=== PATIENT | female | born 1950 | race Caucasian/White ===

== ENCOUNTER → 2016-06-25 | Outpatient (CLI) | payer MEDICARE, OTHER ==
[~2016-06-25] MED LIST: ASPI-650 PO; BEN50 PO; CALCIUM; CALCIUM PO; DIPH25CA6 BC; ESCI10TA PO; ESOM40CA PO; ESTR1VAG4 VG; FEXO-62 PO; FURO-110 PO; LAMO25TB PO; LATA2.5D9 OP; METO10TA96 BC; METR45CR TP; NASO17 NS; OLOP5DRO12 OP; OMEP20CA9 PO; SMV40T PO; SPIR50TA PO; ZOLP12.52 PO; [UNRECOGNIZED DRUG - CODE] BC; [UNRECOGNIZED DRUG - OTHER] PO
--- NOTE | 2016-06-25 15:50 | RADRPT ---
PROCEDURE: XR Pelvis and Hips. CLINICAL INDICATION: Pelvic pain. Bilateral hip pain. TECHNIQUE: Five views. Frontal pelvis. Frontal and lateral right hip. Frontal and lateral left hip. COMPARISON: No prior studies are available for comparison. FINDINGS: There is no fracture or dislocation. The soft tissues are normal. Articular surfaces are intact. There is no lytic or blastic lesion. There is no radiopaque foreign body. IMPRESSION: 1. Unremarkable x-ray pelvis and bilateral hips. RPTAT: QQ .Roberto Carlos Herrera MD, MD Date Time Electronically viewed and signed by .Roberto Carlos Herrera MD, MD on 06/25/2016 15:50 .R/
--- NOTE | 2016-06-25 22:39 | HKNOTE ---
DATE OF SERVICE: 06/25/2016 MAIN COMPLAINT: Pain in both hips. HISTORY OF MAIN COMPLAINT: The patient is a 66-year-old female who has previously undergone bilater al knee replacements performed by me. She has been very pleased with the results of the surgery. S he now complains of pain in her left groin and "a very little pain in the right groin." Lately, she has had to lift her left leg with her hands to get in and out of a car. PRESENT COMPLAINTS: The pain in the left groin radiates down the anterior thigh fci down the th igh. This pain has been present for about 8 months. The pain is described as being moderate and is aggravated by walking and stair climbing. She sometimes gets rest pain. She has been taking over- the-counter anti-inflammatory medications (Aleve) and this has helped somewhat. She has a long hist ory of problems with her lower back. She has been diagnosed as having degenerative disk disease of the lumbar spine. On a level surface, she can walk a mile if she needs to, but she gets pain with e very step and she gets pain every day. She does not use a walking aid. She limps only when she is in pain. Her leg lengths feel equal in length. She does not have a shoe lift. PAST ORTHOPEDIC HISTORY: Previous orthopedic operations: Bilateral knee replacements by Dr. Aubrie varner. PRIOR CORTISONE INTAKE: By injection and by mouth on occasion. ALCOHOL INTAKE: None. OTHER JOINT PROBLEMS: None. BLOOD TESTS FOR ARTHRITIS: None. 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 PHYSICAL EXAMINATION: GENERAL: The patient is a fit-looking, but overweight, 66-year-old female. She walks without a wal jermaine aid. VITAL SIGNS: Height 5 feet. Weight 205 pounds. Blood pressure 213/83, temperature 98.2. GAIT: The patient's gait is normal. HIPS: Both hips have a full range of motion, but the patient gets marked pain in the left groin at the limits of motion. IMAGING: Plain x-rays of her pelvis and hips obtained today show marked narrowing of both hip joint spaces, but there is still some remaining articular space. There is approximately 2/3 narrowing of the hip joints. DIAGNOSES: 1. Moderate degenerative osteoarthritis of both hips, symptomatic on the left side. 2. Status post bilateral total knee replacements. MANAGEMENT: The patient advised that sooner or later she will need to have a hip replacement on the left side. I would not recommend performing the surgery at this time since she is not very markedl y incapacitated and there is still some remaining joint space in the hip. Under sterile conditions, given an injection of 2 mL of Kenalog and 6 mL of 2% lidocaine into the le ft hip joint. She will be seen again as necessary for further evaluation and treatment. Dictated By: AXEL GARZA/CARMEN Conf#: [id number] DID#: [id number]
== END | disposition home or self-care (01) ==
LOC: HKI 15:08
DX: M16.0 Bilateral primary osteoarthritis of hip (principal); Z96.653 Presence of artificial knee joint, bilateral
CPT/HCPCS: 20610; 73523; G0463; J3301

== ENCOUNTER → 2016-10-30 | Outpatient (CLI) | payer MEDICARE, OTHER ==
--- NOTE | 2016-10-30 18:01 | HKNOTE ---
DATE OF SERVICE: 10/30/2016 MAIN COMPLAINT: Pain in the right knee. HISTORY OF MAIN COMPLAINT: The patient is a 66-year-old female who underwent bilateral knee replace ments performed by me. The right knee surgery was performed on 09/19/2009. The patient is very ple ased with the results of surgery. She had no trouble with her knees. She was last seen by me in [facility] complaining of pain in her hips. She was found to have moderate degenerative osteoarthritis i n both hips, more symptomatic on left side. The patient has taken 3 falls in the last 4 months, all falls were caused by some object tripping he r up. Each time she landed right on her knees and each knee became "extensively blackened." The me chanical problem she developed as the result of these falls was some pain in the right knee near the posterior pole of the patella. The last fall was 3 weeks ago. She has not seen any doctor for thes e injuries. PHYSICAL EXAMINATION GENERAL: A fit-looking 66-year-old female. VITAL SIGNS: Height 5 feet, weight 200 pounds. Blood pressure 135/65, temperature 99.2. KNEE: Examination of the right knee, full range of motion with no pain. Tender over the lower pole of the patella. No external sign of infection or inflammation. Quadriceps mechanism is strong. O n examination of the left knee, there is a full range of motion without pain. No external sign of i nfection or inflammation. IMAGING: X-rays of her knees obtained today were reviewed with special attention to the right knee and special attention to the patella and proximal tibia. No acute fractures were noted in either kn ee. The components are well attached to the bone without any suggestion of loosening or any other p roblem. MANAGEMENT: Given reassurance that all appears to be well. She will be seen again as necessary. DIAGNOSES: 1. Status post bilateral knee replacements. 2. Status post multiple falls on both knees. 3. Sprain of both knees. 4. Degenerative osteoarthritis of both hips. Dictated By: AXEL GARZA/CARMEN Conf#: [id number] DID#: [id number]
--- NOTE | 2016-10-31 11:10 | RADRPT ---
PROCEDURE: XR bilateral knees. CLINICAL INDICATION: Knee pain. TECHNIQUE: AP weightbearing, lateral weightbearing and sunrise views of each knee are available fo r review. COMPARISON: No comparison available FINDINGS: There are bilateral total knee replacements. There is no evidence of loosening of the prosthesis. Th ere is no evidence of hardware failure. The osseous structures are normal in mineralization, archite cture and alignment No acute fracture or dislocation is seen.No osseous lesions are identified. The soft tissues are unremarkable . IMPRESSION: Unremarkable bilateral total knee replacements. RPTAT: HGDB .Ronald Magana MD, MD Date Time Electronically viewed and signed by .Ronald Magana MD, on 10/31/2016 11:10 .B/
== END | disposition home or self-care (01) ==
LOC: HKI 14:56
DX: M25.561 Pain in right knee (principal); S83.92XA Sprain of unspecified site of left knee, initial encounter; S83.91XA Sprain of unspecified site of right knee, initial encounter; M16.0 Bilateral primary osteoarthritis of hip; Z96.653 Presence of artificial knee joint, bilateral

== ENCOUNTER → 2018-05-13 | Outpatient (CLI) | END | disposition home or self-care (01) ==

== ENCOUNTER → 2018-05-27 | Outpatient (CLI) | END | disposition home or self-care (01) ==

== ENCOUNTER 2018-10-27 15:13 | Emergency (ER) | payer MEDICARE, OTHER ==
[~2018-10-27] VITALS: Ht 152.4 cm; Wt 82.2 kg
[~2018-10-27 15:13] MED LIST changes: -FEXO-62 PO; +FEXO180T13 PO; -LAMO25TB PO; +LAMO25TB7 PO; +LATA2.5D19 OP; -LATA2.5D9 OP; +METO10TA3 BC; -METO10TA96 BC; +SIMV40TA3 PO; -SMV40T PO
[2018-10-27 15:16] VITALS: BP 150/64; PULSE 68; RESP 18; Ht 152.4 cm; Wt 82.2 kg
--- NOTE | 2018-10-27 16:25 | ERD ---
ER Documentation Chief Complaint Chief Complaint lt arm pain abrasions on face, lt side of lip swelling s/p trip and fall HPI 68-year-old female, with history of hypertension and depression, presents the emergency department, complaining of left elbow pain after sustaining a ground- level fall that occurred approximately 2 hours prior to arrival. The patient denies any precipitating chest pain or dizziness. The patient also presents abrasions on the left side of the face. No loss of consciousness. ROS All systems reviewed and are negative except as per history of present illness. Medications Home Meds Active Scripts Hydrocodone/Acetaminophen ([place] 5-325 Tablet) 1 Each Tablet, 1 TAB PO QHS PRN for PAIN, #10 TAB Prov:SARITHA KAUR MD 10/27/18 Ibuprofen* (Motrin*) 600 Mg Tab, 600 MG PO Q8, #30 TAB Prov:SARITHA KAUR MD 10/27/18 Acetaminophen* (Tylenol*) 325 Mg Tablet, 2 TAB PO Q6 PRN for PAIN AND OR ELEVATED TEMP, #20 TAB Prov:SARITHA KAUR MD 10/27/18 Reported Medications Diphenhydramine Hcl* (Benadryl*) 50 Mg Cap, 50 MG PO 02/06/11 Diphenhydramine Hcl (Benadryl) 25 Mg Cap, 25 MG BC PRN NEEDED FOR ALLERGY 02/06/11 Fluoride Ion/Multivitamins (Multi Vit-Fl 0.25 Mg Tab Chew) 0.25 Mg Tab.chew, 0.25 MG BC HS 02/06/11 Cod Liver Oil (Cod Liver Oil) 1 Tab.chew Tab.chew, 1 TAB.CHEW PO HS 02/06/11 [Christal Calcium] No Conflict Check, 1200 PO BID 02/06/11 [Christal Calcium 1200] No Conflict Check 02/06/11 Aspirin (Aspirin) 81 Mg Tablet, 81 MG PO HS 02/06/11 Olopatadine* (Patanol* Ophth) 5 Ml Drops, 5 ML OP BID 1 DROP EACH EYE PRN 02/06/11 Latanoprost (Xalatan) 2.5 Ml Drops, 2.5 ML OP HS 02/06/11 Metronidazole (Metronidazole) 45 Gm Cream.gm., 45 GM TP 02/06/11 Fexofenadine Hcl* (Fexofenadine Hcl*) 180 Mg Tablet, 180 MG PO HS 02/06/11 Estradiol (Estring) 1 Vag.ring Vag.ring, 1 VAG.RING VG QUARTERLY 02/06/11 Zolpidem Tartrate* (Ambien* CR) 12.5 Mg/Bottle Tab.mphase, 12.5 MG PO HS 02/06/11 Lamotrigine* (Lamotrigine* CHEW) 25 Mg Tab.disper, 100 MG PO HS 02/06/11 Mometasone Furoate* (Nasonex*) 17 Gm [place].pump, 17 GM NS BID 02/06/11 Metoclopramide Hcl* (Metoclopramide Hcl*) 10 Mg Tablet, 10 MG BC HS 02/06/11 Esomeprazole Mag Trihydrate (Nexium) 40 Mg Capsule.dr, 40 MG PO DAILY 02/06/11 Simvastatin (Simvastatin) 40 Mg Tablet, 40 MG PO HS 02/06/11 Escitalopram Oxalate* (Lexapro*) 10 Mg Tablet, 10 MG PO HS 02/05/11 Spironolactone* (Aldactone*) 50 Mg Tablet, 50 MG PO DAILY 02/05/11 Furosemide* (Lasix*) 20 Mg Tablet, 20 MG PO DAILY 02/05/11 Omeprazole* (Prilosec*) 20 Mg Capsule.dr, 20 MG PO DAILY 02/05/11 Allergies Allergies: Coded Allergies: No Known Drug Allergy (Verified Allergy, Unknown, 02/06/11) PMhx/Soc History of Surgery: Yes (BILATERAL KNEE REPLACEMENT IN AUGUST 2009, APPENDECTOMY, 2 CS, HYSTERCTOMY ) Anesthesia Reaction: No Hx Neurological Disorder: Yes (YEST INFECTION) Hx Respiratory Disorders: No Hx Cardiac Disorders: No Hx Psychiatric Problems: Yes (DEPRESSION) Hx Miscellaneous Medical Probl: No Hx Alcohol Use: No Hx Substance Use: No Hx Tobacco Use: No Smoking Status: Never smoker FmHx Family History: No diabetes, No coronary disease Physical Exam Vitals Vital Signs Date Temp Pulse Resp B/P (MAP) Pulse Ox O2 O2 Flow FiO2 Time Delivery Rate 10/27/18 97.6 68 18 150/64 99 15:16 (92) Physical Exam Patient alert, oriented, vital signs stable. HEAD: Normocephalic, multiple superficial abrasions on the left facial area. EYES: PERRLA, EOMI, Sclera and conjunctiva appear normal. NOSE: Clear and patent nostrils. EARS: Canals clear, tympanic membranes WNL. MOUTH: normal lips and tongue, no oral lesions. THROAT: Normal oropharynx, no tonsillar exudates. NECK: Supple, No lymphadenopathy. Full ROM without pain or tenderness. HEART: RRR, no rubs, murmurs, clicks or gallops. LUNGS: Clear to auscultation. ABDOMEN: Soft, non-tender without masses or hepatosplenomegaly. EXTREMITIES: Left upper extremity: Tenderness over the lateral epicondylar elbow area, with decreased range of motion for extension and flexion, distal neurovascular exam intact. BACK: Full ROM, no deformity, normal back exam NEURO: Cranial nerves grossly intact, no motor or sensory deficit SKIN: No rashes, no petechia. Results 24 hrs Patient: TABITHA SHELBY : 1950 Age: 68 Sex: F MR #: [id number] DOS: 10/27/18 1623 Ordering MD: SARITHA KAUR MD Location: [facility] Room/Bed: PROCEDURE: CT HEAD NON CONTRAST CLINICAL INDICATION: Head injury, status post fall, history of stroke TECHNIQUE: Utilizing the multi-slice spiral CT scanner, multiple images were obtained through the brain without intravenous contrast. Automatic exposure control was utilized as dose lowering technique.DICOM images available One of more of the following dose reduction techniques were utilized: -automatic exposure control.-adjustment of the mA and/or kV according to patient size. -Use of iterative reconstruction technique. Radiation Dose: CTDI is 38.70 mGy. DLP is 634.23 mGy-cm. COMPARISON: 05/14/2018 CT head FINDINGS: Ventricular system and brain parenchyma appear unremarkable. No acute intracranial bleed, midline shift, acute extra-axial collection noted Mild periventricular low density area suggestive of deep white matter ischemic changes. Proportionate overlying brain atrophy noted. Brain stem, posterior fossa appears unremarkable. The globe, retrobulbar area appears unremarkable.. Bony calvarium and overlying soft tissues appear unremarkable. Findings are unchanged from prior study. IMPRESSION: NO ACUTE INTRACRANIAL BLEED NOTED. Patient: TABITHA SHELBY : 1950 Age: 68 Sex: F MR #: [id number] DOS: 10/27/18 1623 Ordering MD: SARITHA KAUR MD Location: [facility] Room/Bed: PROCEDURE: XR left elbow. CLINICAL INDICATION: Left elbow pain. TECHNIQUE: 3 views. Frontal, lateral, and oblique. COMPARISON: No prior study is available for comparison. FINDINGS: There is a minimally displaced fracture of the radial head seen only on the oblique view. There is no other fracture and there is no dislocation. There is fluid in the elbow joint with elevation of the anterior and posterior fat pads. Articular surfaces are otherwise intact. There is no lytic or blastic lesion. There is no radiopaque foreign body. IMPRESSION: 1. Minimally displaced fracture of the radial head seen only on the oblique view. 2. Fluid in the elbow joint. 3. Otherwise unremarkable images of the left elbow. Procedures/MDM Differential diagnosis considered include but not limited are: Head concussion, contusion, skull fracture, vertebral fracture, intracranial hemorrhage, upper extremity sprain/strain, ligament injury, fracture, dislocation, low suspicion for acute infectious process. Soft compartments, neurovascular exam grossly intact. Physical examination and clinical presentation consistent with fall causing head contusion and left radial head fracture. During the ED course the patient received treatment with left posterior long-arm presenting overall improvement of the symptoms. Splint evaluation: Type: Posterior long-arm Location: Left upper extremity Position: good alignment in anatomical position Neurovascular intact Results and clinical impression discussed with the patient who agrees with management. The patient is stable to be treated outpatient and will be discharged home with recommendations for Ortho evaluation DON, meanwhile, ice, rest and partial immobilization. NSAIDs 3 times daily for 5 days and close monitoring. The patient was instructed to follow up with the primary care provider in the next 48h. If symptoms persist, worsen or new symptoms develop, then patient should return to the ED immediately. Instructions explained and given to patient with acknowledgment and demonstrated understanding. Disclaimer: Inadvertent spelling and grammatical errors are likely due to EHR/ dictation software use and do not reflect on the overall quality of patient care. Also, please note that the electronic time recorded on this note does not necessarily reflect the actual time of the patient encounter. Departure Diagnosis: Primary Impression: Fall Additional Impressions: Left radial head fracture Head contusion Condition: Stable Patient Instructions: Fall Prevention Additional Instructions: Thank you very much for allowing us to participate in your care. Your health and safety is our top priority at [facility]. Call your primary care doctor TOMORROW for an appointment during the next 2-4 days and bring all the information provided. Have prescriptions filled and follow precisely the directions on the label. If the symptoms get worse and your provider is unavailable, return to the Emergency Department immediately. SARITHA KAUR MD October 27, 2018 16:25
[2018-10-27] MEDS ORDERED: ACET325T33 PO (18:13)
[2018-10-27] MEDS ORDERED: HYDR-4011 PO (18:13)
[2018-10-27] MEDS ORDERED: IBUP-1542 PO (18:13)
== END 2018-10-27 18:45 | disposition home or self-care (01) ==
LOC: FTE 15:13
DX: S52.122A Displaced fracture of head of left radius, initial encounter for closed fracture (principal); S00.83XA Contusion of other part of head, initial encounter; W01.0XXA Fall on same level from slipping, tripping and stumbling without subsequent striking against object, initial encounter; Y92.9 Unspecified place or not applicable; Z79.82 Long term (current) use of aspirin; Z96.653 Presence of artificial knee joint, bilateral
CPT/HCPCS: 70450